=== PATIENT | female | born 1995 | race American Indian/Alaskan Native ===

== ENCOUNTER 2017-06-17 15:44 | Emergency (ER) | payer SELFPAY ==
[2017-06-17 15:58] VITALS: BP 130/70
[2017-06-17 16:47] LABS: Bilirubin,Urine NEG (Negative); Blood,Urine SM (Negative); Color,Urine Yellow (Yellow); HCG Qualitative,Urine Positive (Negative); Mucus,Urine FEW /HPF; Protein,Urine <15 mg/dL mg/dL (Negative)
[2017-06-17] MEDS ORDERED: TYLENOL PO ONE (18:47)
--- NOTE | 2017-06-17 20:10 | Emergency Department Report ---
Chief Complaint: Abdominal Pain Stated Complaint: ABD PAIN Time Seen by Provider: 06/17/17 18:18 - HPI History of Present Illness: The patient is a 21-year-old female who presents for evaluation of abdominal pain. The patient reports 2 days of lower abdominal pain, crampy in quality, mild in severity. She shares that she missed her last menstrual cycle. The patient denies fever, chills, night sweats, trauma to the abdomen, diarrhea, blood in the stool, dark tarry stool, dysuria, hematuria, flank pain, genital discharge, vaginal bleeding. - Exam Vital Signs: Vital Signs 06/17/17 15:55 Temperature 98 F Pulse Rate 80 Respiratory 18 Rate Blood Pressure 130/70 O2 Sat by Pulse 100 Oximetry MSE screening note: Focused history and physical exam performed. Due to findings the following was ordered: ED Disposition for MSE Condition: Stable Instructions: Abdominal Pain (ED) Referrals: PRIMARY CARE, [Primary Care Provider] - 3-5 Days
--- NOTE | 2017-06-17 20:56 | Ultrasound Report ---
FINAL REPORT PROCEDURE: US OB TRANSVAGINAL TECHNIQUE: Real-time transvaginal sonography of the uterus, placenta, amniotic fluid, adnexa, and fetus was performed with image documentation. Measurements were obtained to determine age/size. M-mode Doppler was used to document heartbeat. CPT 36619 Ultrasound sheet dated received via e-mail HISTORY: abdominal pain, COMPARISON: No prior studies are available for comparison. FINDINGS: Uterus measures 8 centimeters. Endometrial stripe 16 millimeters. Right ovary 2.9 x 2.3 centimeters Left ovary 3.2 x 2.2 centimeters. IUP is not seen. No gestational sac or embryonic pole seen. heart rate not visualized. Minimal free fluid. IMPRESSION: No IUP seen at this time. Followup is advised.
--- NOTE | 2017-06-17 20:59 | Ultrasound Report ---
FINAL REPORT PROCEDURE: US OB < = 14 WEEKS FETUS TECHNIQUE: Real-time transabdominal sonography of the uterus, placenta, amniotic fluid, adnexa, and fetus was performed with image documentation. Measurements were obtained to determine age/size. M-mode Doppler was used to document heartbeat. CPT 26033 HISTORY: abdominal pain, COMPARISON: Transvaginal ultrasound today FINDINGS: Uterus 8 centimeters. Endometrial stripe 16 millimeters. Gestational sac or embryonic pole not seen. No evidence of IUP. heart rate not visualized. Right ovary 2.9 x 2.3 centimeters and left ovary to 3.2 x 2.2 centimeters. No ovarian torsion. Minimal free fluid IMPRESSION: No IUP seen. No gestational sac or embryonic pole seen. Minimal free fluid Followup advised as warranted.
--- NOTE | 2017-06-17 21:22 | Emergency Department Report ---
ED Abdominal Pain HPI - General Chief Complaint: Abdominal Pain Stated Complaint: ABD PAIN Time Seen by Provider: 06/17/17 18:18 Source: patient Mode of arrival: Ambulatory Limitations: No Limitations - History of Present Illness Initial Comments: The patient is a 21-year-old female who presents for evaluation of abdominal pain. The patient reports 2 days of lower abdominal pain, crampy in quality, mild in severity. She shares that she missed her last menstrual cycle. The patient denies fever, chills, night sweats, trauma to the abdomen, diarrhea, blood in the stool, dark tarry stool, dysuria, hematuria, flank pain, genital discharge, vaginal bleeding. She reports no past medical history currently taking no medications has no known drug allergies. -: days(s) (2) Severity scale (0 -10): 4 - Related Data Previous Rx's Medication Instructions Recorded Last Taken Type Pnv No.95/Ferrous Fum/Folic AC 1 each PO QDAY #90 tablet 06/17/17 Unknown Rx [ Formula Tablet] Allergies Allergy/AdvReac Type Severity Reaction Status Date / Time No Known Allergies Allergy Unverified 06/17/17 15:58 ED Review of Systems ROS: Stated complaint: ABD PAIN Other details as noted in HPI Constitutional: denies: chills, fever Eyes: denies: eye pain, eye discharge, vision change ENT: denies: ear pain, throat pain Respiratory: denies: cough, shortness of breath, wheezing Cardiovascular: denies: chest pain, palpitations Endocrine: no symptoms reported Gastrointestinal: abdominal pain. denies: nausea, diarrhea Genitourinary: denies: urgency, dysuria, discharge Musculoskeletal: denies: back pain, joint swelling, arthralgia Skin: denies: rash, lesions Neurological: denies: headache, weakness, paresthesias Psychiatric: denies: anxiety, depression Hematological/Lymphatic: denies: easy bleeding, easy bruising ED Past Medical Hx - Past Medical History Previous Medical History?: No - Surgical History Past Surgical History?: No - Social History Smoking Status: Never Smoker Substance Use Type: None - Medications Home Medications: Home Medications Medication Instructions Recorded Confirmed Last Taken Type Pnv No.95/Ferrous Fum/Folic AC 1 each PO QDAY #90 tablet 06/17/17 Unknown Rx [ Formula Tablet] ED Physical Exam - General Limitations: No Limitations General appearance: alert, in no apparent distress - Head Head exam: Present: atraumatic, normocephalic - Eye Eye exam: Present: normal appearance - ENT ENT exam: Present: mucous membranes moist - Neck Neck exam: Present: normal inspection - Respiratory Respiratory exam: Present: normal lung sounds bilaterally. Absent: respiratory distress - Cardiovascular Cardiovascular Exam: Present: regular rate, normal rhythm. Absent: systolic murmur, diastolic murmur, rubs, gallop - GI/Abdominal GI/Abdominal exam: Present: soft, normal bowel sounds - Extremities Exam Extremities exam: Present: normal inspection - Back Exam Back exam: Present: normal inspection - Neurological Exam Neurological exam: Present: alert, oriented X3 - Psychiatric Psychiatric exam: Present: normal affect, normal mood - Skin Skin exam: Present: warm, dry, intact, normal color. Absent: rash ED Course Vital Signs 06/17/17 15:55 Temperature 98 F Pulse Rate 80 Respiratory 18 Rate Blood Pressure 130/70 O2 Sat by Pulse 100 Oximetry ED Medical Decision Making - Radiology Data Radiology results: report reviewed, image reviewed FINDINGS: Uterus measures 8 centimeters. Endometrial stripe 16 millimeters. Right ovary 2.9 x 2.3 centimeters Left ovary 3.2 x 2.2 centimeters. IUP is not seen. No gestational sac or embryonic pole seen. heart rate not visualized. Minimal free fluid. IMPRESSION: No IUP seen at this time. Followup is advised. - Medical Decision Making Patient has been evaluated by this provider as well as Dr. Schneider. Patient has a positive hCG and a quantitative [id number]. Discussed the patient she likely start her on vitamins which she requests. Discussed the patient she needs to follow up with [facility]. I discussed with her a list to order discharge summary. At this time patient denies any abdominal pain no nausea no vomiting. Patient is stable to be discharged. Critical care attestation.: If time is entered above; I have spent that time in minutes in the direct care of this critically ill patient, excluding procedure time. ED Disposition Clinical Impression: Qualifiers: Weeks of gestation: less than 8 weeks Qualified Code(s): Z3A.01 - Less than 8 weeks gestation of Disposition: DC-01 TO HOME OR SELFCARE Is pt being admited?: No Does the pt Need Aspirin: No Condition: Stable Instructions: Abdominal Pain (ED) Additional Instructions: Please follow up with the [facility]. Please take her vitamins daily as prescribed. Please return in 2-3 days to have blood work checked for your . Prescriptions: Pnv No.95/Ferrous Fum/Folic AC [ Formula Tablet] 1 each PO QDAY #90 tablet Referrals: PRIMARY CARE, [Primary Care Provider] - 3-5 Days [facility] [Provider Group] - 3-5 Days Forms: Work/School Release Form(ED)
== END 2017-06-17 21:35 | disposition home or self-care (01) ==
LOC: ED 15:44
DX: O26.891 Other specified pregnancy related conditions, first trimester (principal); R10.30 Lower abdominal pain, unspecified; Z3A.01 Less than 8 weeks gestation of pregnancy
CPT/HCPCS: 36415; 76801; 76817; 81001; 81025; 84702; 99284